=== PATIENT | male | born 1960 | race Caucasian/White ===

== ENCOUNTER 2019-12-30 23:50 | Emergency (ER) | payer OTHER, MEDICARE ==
--- NOTE | 2019-12-31 08:39 | RAD ---
PORTABLE CHEST: Date: 12/31/2019 HISTORY: Congestion and sore throat. FINDINGS: Heart size and mediastinum are within normal limits. Lungs are clear of infiltrates. No significant b heidi findings. IMPRESSION: No active intrathoracic disease. POS: [facility]
[2019-12-31 18:39] LABS: SARS-CoV-2 MS2 Positive; SARS-CoV-2 N Gene Negative; SARS-CoV-2 S Gene Negative; SARS-CoV-2 orf1ab Negative
--- NOTE | 2020-01-04 11:54 | EKG ---
Test Reason : Blood Pressure : / mmHG Vent. Rate : 061 BPM Atrial Rate : 061 BPM P-R Int : 178 ms QRS Dur : 096 ms QT Int : 414 ms P-R-T Axes : 045 034 058 degrees QTc Int : 416 ms Normal sinus rhythm Normal ECG Confirmed by MARCELL CERVANTES ([id number]), associate editor ELEUTERIO MARTINEZ ([id number]) on 01/04/2020 11:54:21 AM Referred By: Confirmed By:MARCELL CERVANTES
== END 2019-12-31 01:12 | disposition home or self-care (01) ==
LOC: ERS 23:50
DX: J06.9 Acute upper respiratory infection, unspecified (principal); Z20.828 Contact with and (suspected) exposure to other viral communicable diseases; E78.5 Hyperlipidemia, unspecified; I10 Essential (primary) hypertension; E05.90 Thyrotoxicosis, unspecified without thyrotoxic crisis or storm; Z86.73 Personal history of transient ischemic attack (TIA), and cerebral infarction without residual deficits
CPT/HCPCS: 71045; 87635; 93005; U0003